=== PATIENT | female | born 2005 | race Caucasian/White ===

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

== ENCOUNTER → 2024-04-21 | Outpatient (CLI) | payer BC, SELFPAY ==
--- NOTE | 2024-04-21 10:21 | NM_ITS ---
CLINICAL: 18-year-old female with history of chronic nausea SEMI-SOLID PHASE 99m Tc SULFUR COLLOID GASTRIC EMPTYING STUDY COMPARISON: None available FINDINGS: The patient was administered 1.1 mCi of 99m Tc sulfur colloid mixed with oatmeal and consumed per os. Image acquisitions in the anterior-posterior projections were obtained for 60 minutes. There is prompt visualization of the stomach. There is no gastroesophageal reflux identified. The T ? raw data emptying was calculated to be 48.78 minutes, (Normal: 12-56 minutes). NM/Gastric Emptying Study IMPRESSION: 1. NORMAL 99m Tc sulfur colloid semi-solid phase (oatmeal) gastric emptying imaging examination. A. There is normal and preserved semi-solid phase gastric emptying compared to normal controls. (Lebron et al, J Nucl Med Tech 38: 186, 2010). Electronically Signed: Tarik Quiroz DO at 10:07 EDT ,
== END | disposition home or self-care (01) ==
LOC: NM 10:18
PROVIDERS: PCP Pediatrics; Referring Provider Student in an Organized Health Care Education/Training Program; Visit Provider Student in an Organized Health Care Education/Training Program
DX: R10.9 Unspecified abdominal pain (principal)
CPT/HCPCS: 78264; A9541

== ENCOUNTER 2024-10-18 11:40 | Emergency (ER) | payer BC, SELFPAY ==
[2024-10-18 11:41] VITALS: BP 135/83; PULSE 146; RESP 18; TEMP 36.8; O2SAT 100; BMI 27.3
[2024-10-18] MEDS: Ketorolac 15 MG/ML Vial IV (12:07)
[2024-10-18] MEDS: Ondansetron 4 MG/2 ML Vial IV (12:07)
[2024-10-18 12:08] LABS: Mucous, Urine 0 SEEN /hpf (<or=2+)
[2024-10-18 12:10] LABS: Color, Urine Yellow (Yellow); Glucose, Dipstick Normal (Normal); Ketone-Dipstick 5 mg/dl (Negative); Leukocyte Esterase-Dipstick 25 /ul (Negative); Nitrite-Dipstick Negative (Negative); Occult Blood-Urine 250 /ul (Negative); Protein-Dipstick 30 mg/dl (Negative); Urine Bilirubin Dipstick Negative (Negative); Urine Clarity Sl. Cloudy (Clear); Urine Urobilinogen Normal (Normal)
[2024-10-18 12:11] LABS: Absolute Lymphocyte Count 0.86 X10^3/uL (0.83-4.51); Absolute Neutrophil Count 5.5 X10^3/uL (2.0-7.7); Basophil# 0.01 X10^3/uL; Basophil% 0.1 % (0-1); Eosinophil# 0.03 X10^3/uL; Eosinophils% 0.4 % (0-5); Hematocrit 41.8 % (37-47); Hemoglobin 14.2 g/dL (12.0-15.0); Lymphocyte # 0.86 X10^3/ul (0.83-4.51); Lymphocyte % 11.9 % (19-41); Mean Corpuscular Hgb 30.6 pg (27.0-32.0); Mean Corpuscular Volume 90.1 fL (81-99); Mean Platelet Vol. 11.9 fl (6.2-12.0); NRBC Flagged by Analyzer 0 % (0-5); Neutrophil # 5.53 X10^3/uL (2.7-7.7); Neutrophil % 76.3 % (47-70); Platelet Count 206 K/mm3 (150-450); RBC Distribution Width CV 12.1 % (11.6-14.6); RBC Distribution Width SD 39.7 fl (35.1-43.9); Red Blood Count 4.64 M/mm3 (4.2-5.4); White Blood Count 7.3 K/mm3 (4.4-11.0)
[2024-10-18 12:15] LABS: Bacteria 2+ /hpf (None Seen); Squamous Epithelial Cells - UA 5-10 SEEN /hpf (5-10)
[2024-10-18 12:16] LABS: Red Blood Cells-Urine 0 SEEN /hpf (0-5); White Blood Cells 0-5 SEEN /hpf (0-5)
[2024-10-18 12:18] LABS: Internal QC Validated? YES +Cl - CLEAR BKGD; Pregnancy, Serum, hCG Quali. NEGATIVE Negative
--- NOTE | 2024-10-18 12:22 | EDS_ITS ---
HPI History of Present Illness Chief Complaint: Complaint Detail of Chief Complaint: Bilateral back pain with frequency Informant: patient Onset/Context/Timing Onset: Days (Detailed HPI narrative) Context: Onset with activity Timing: Intermittent and Waxes and wanes Quality: Pain Location: Right and left flank Current Severity: Moderate Maximum Severity: Severe Worsened by: Movement Relieved by: Nothing better if she remains still Associated Symptoms Associated Symptoms: Frequency Narrative Narrative: Patient complains of pain back and abdomen. States it feels like her kidney stone. She reports symptoms started a couple days ago. Pain resolved. Last night she had increased pain. She localizes the pain to the right left flank area. She just started her menses. She is on control. She is sexually active. She denies history of . She denies symptoms of . Patient denies fever, chills night sweats. Patient denies nausea, vomiting or diarrhea. Patient does report frequency. She denies dysuria. There is no history of trauma. Pain is worse with movement. She remains still the pain is less. She has not noted any lesions or rash. Review of prior records indicates patient had a small nonobstructing left ureteral stone June 2022. Patient had an ultrasound April 2023 which revealed no evidence of renal stones. Patient had a CT of the abdomen May 2023 which revealed no abnormality. Prior similar symptoms: Yes (When she had prior kidney stone) Recent Illness/Hospitalization: No PFSH PFS Medical History Easy bruising Renal stone Anxiety Low iron Back pain Migraine headache Non-smoker Depression Home Medications ?Medication ?Instructions ?Recorded ?Last Taken ?Type drospirenone 3 mg-ethinyl 1 tab PO DAILY 03/26/24 Unkn own History estradiol 0.02 mg tablet (SWATHI (28)) ciprofloxacin HCl 500 mg tablet 500 mg PO BID #14 TABL ETS 10/18/24 Unknown Rx Allergy/AdvReac Type Severity Reaction Status Date / Time cephalexin (From Keflex) Allergy Hives Verified 10/18/24 11:43 Penicillins Allergy Hives Verified 10/18/24 11:43 Family History Mother Asthma Anemia IBS (irritable bowel syndrome) Father Scheurmann's disease Degenerative disc disease Surgical History [place] teeth removed Social History Smoking Status: Never smoker alcohol intake: never substance use type: marijuana ROS ROS ED Constitutional Constitutional ED: Denies chills, fever(s), subjective or sweats Eyes Eyes: Denies blurry vision or change in vision ENT ENT ED: Denies ear pain, rhinorrhea or sore throat Cardiovascular Cardiovascular: Denies chest pain, palpitations or racing heartbeat Respiratory/Chest Respiratory/Chest: Denies cough, dyspnea or dyspnea on exertion Gastrointestinal Gastrointestinal: Reports abdominal pain; Denies constipation, diarrhea, melena, nausea or vomiting Genitourinary Genitourinary ED: Reports urinary frequency; Denies dysuria or hematuria Musculoskeletal Musculoskeletal: Reports back pain; Denies arthralgias or myalgias Integumentary Denies rash Hematologic/Lymphatic Hematologic/Lymphatic: Reports systems reviewed and no addt'l complaints, except as documented EXAM Physical Exam Const Vital Signs: 10/18/24 11:41 10/18/24 12:47 Temperature 98.2 F Temperature Source Oral Pulse Rate 146 H 89 Respiratory Rate 18 15 Blood Pressure 135/83 H 108/72 Blood Pressure Mean 100 84 Pulse Ox 100 99 Oxygen Delivery Method Room Air Room Air Vital signs remarkable for heart rate of 146. Positive well nourished and well developed General Appearance ED: well developed, NAD and pallor; Negative for cyanotic or diaphoretic HEENT Reports moist mucous membranes HEENT Narrative: Has atraumatic normocephalic. Ears normal. Nares patent. Posterior pharynx is normal. Eyes PERRL and EOMs intact bilaterally General Eye ED: Negative for pale conjunctiva Neck no lymphadenopathy, supple and no JVD Chest Wall inspection of chest normal and palpation of chest normal Resp normal respiratory effort and clear to auscultation bilaterally Cardio regular rate, regular rhythm, S1 normal heart sound, S2 normal heart sound and no murmurs GI normal to inspection, nondistended, normoactive bowel sounds, non-tender, non- distended and no masses; Negative for hepatosplenomegaly Inspection: Negative for abdominal distention Palpation: soft Back/Spine Negative for no CVA tenderness General Back: CVA tenderness bilateral (Pain is over the right kidney on the right pain is paralumbar region on the left) Extremity normal to inspection General Extremety ED: Negative for edema or tenderness General Extremity: Negative for edema Neuro oriented x3, CN's II-XII intact bilaterally and no sensory deficits noted Sensorium / Orientation: alert Motor Exam: strength 5/5 throughout Skin no rashes or lesions noted, no wounds and skin turgor normal General Skin Exam: elasticity normal and pallor; Negative for jaundice MDM MDM MDM Narrative Medical decision making narrative: Differential diagnosis would be muscular pain, pyelonephritis, obstructing ureteral stone with or without infection, history is not consistent with ap pendicitis. History is not consistent with ectopic or ovarian cyst. Will have vitals repeated since her heart rate was markedly elevated. CBC was obtained assess white count differential. Urine to assess for evidence of infection. Serum in the event that a CT is needed. BMP to assess electrolytes and glucose. Patient was medicated with IV Toradol. Nurse was asked at 1231 to repeat vital signs. History & Record Review Additional record(s) reviewed:: Prior ED visit (Documented HPI narrative.) and Prior labs Lab Data Attestation: I reviewed the patient's lab results. Lab results narrative: CBC is remarkable for slight elevation of neutrophils. Basic metabolic panel is unremarkable. Serum test is negative. Urine is suggestive with infection. Patient also has ketones. Labs: Laboratory Results - last 24 hr 10/18/24 10/18/24 11:59 12:00 WBC 7.3 RBC 4.64 Hgb 14.2 Hct 41.8 MCV 90.1 MCH 30.6 MCHC 34.0 RDW Std Deviation 39.7 RDW Coeff of Miguel 12.1 Plt Count 206 MPV 11.9 Immature Gran % (Auto) 0.300 Neut % (Auto) 76.3 H Lymph % (Auto) 11.9 L [place] % (Auto) 11.0 H Eos % (Auto) 0.4 Baso % (Auto) 0.1 Absolute Neuts (auto) 5.5 Absolute Lymphs (auto) 0.86 Nucleated RBC % 0 Sodium 138 Potassium 3.6 Chloride 108 H Carbon Dioxide 22.0 Anion Gap 8 BUN 7 Creatinine 0.63 Estim Creat Clear Calc 143.97 Est GFR (MDRD) Af Amer 154 Est GFR (MDRD) Non-Af 128 BUN/Creatinine Ratio 11.1 Glucose 101 Calcium 8.5 Serum , Qual NEGATIVE Urine Color Yellow Urine Clarity Sl. Cloudy Urine pH 6.0 Ur Specific [place] 1.010 Urine Protein 30 H Urine Glucose (UA) Normal Urine Ketones 5 H Urine Occult Blood 250 H Urine Nitrite Negative Urine Bilirubin Negative Urine Urobilinogen Normal Ur Leukocyte Esterase 25 H Urine RBC 0 SEEN Urine WBC 0-5 SEEN Ur Squamous Epith Cells 5-10 SEEN Urine Bacteria 2+ Urine Mucus 0 SEEN Treatment and Re-Evaluation :: Patient was informed of results and recent imaging was not obtained. She understands. Will discharge to home with prescription for ciprofloxacin. Discharge Plan Triage Chief Complaint: Complaint ED Provider: Juan Wolfe Dx/Rx/DC Orders Clinical Impression: Pyelonephritis of right kidney, Sinus tachycardia, Ketosis Instructions: ED Pyelonephritis, Female (Adult) Prescriptions: New ciprofloxacin HCl 500 mg tablet 500 mg PO BID Qty: 14 0RF No Action drospirenone-ethinyl estradiol [SWATHI (28)] 3-0.02 mg tablet 1 tab PO DAILY Primary Care Provider: Kirsten Mancera Referrals: NOT,DEFINED [Non-Staff] - Kirsten Mancera, [employer] [Primary Care Provider] - 3-5 Days if not improving Print Language: Polish Disposition Disposition: Home, Self Care
[2024-10-18] MEDS: Ciprofloxacin 500 MG Tablet PO (12:31)
[2024-10-18 12:40] LABS: Anion Gap 8 (5-15); BUN 7 mg/dL (7-18); BUN/Creat Ratio 11.1 RATIO (10-20); Calcium,Total 8.5 mg/dL (8.5-10.1); Chloride 108 mmol/L (98-107); Creatinine, Serum 0.63 mg/dL (0.55-1.02); EST Glomerular Filtration Rate 128 mL/min (>60); Est Glom Filt Rate - Afr Amer 154 mL/min (>60); Estimated Creatinine Clearance 143.97 ml/min; Glucose 101 mg/dL (74-106); Potassium 3.6 mmol/L (3.5-5.1); Sodium Level 138 mmol/L (136-145)
[2024-10-18 12:47] VITALS: BP 108/72; PULSE 89; RESP 15; O2SAT 99
[2024-10-18 13:11] VITALS: BP 123/74; PULSE 78; RESP 18; TEMP 36.4; O2SAT 98
== END 2024-10-18 13:13 | disposition home or self-care (01) ==
PROVIDERS: Emergency Provider Emergency Medicine; PCP Nurse Practitioner Women's Health; Visit Provider Emergency Medicine
DX: N12 Tubulo-interstitial nephritis, not specified as acute or chronic (principal); E88.89 Other specified metabolic disorders; R00.0 Tachycardia, unspecified
CPT/HCPCS: 80048; 81001; 84703; 85025; 87086; 87088; 96374; 96375; 96376; 99283; A4216; J2405

== ENCOUNTER → 2025-01-29 | Outpatient (CLI) | payer BC, SELFPAY ==
[2025-02-03 08:08] LABS: Calprotectin, Stool 17 ug/g (0-120)
== END | disposition home or self-care (01) ==
PROVIDERS: PCP Nurse Practitioner Women's Health; Referring Provider Student in an Organized Health Care Education/Training Program; Visit Provider Student in an Organized Health Care Education/Training Program
DX: K58.9 Irritable bowel syndrome, unspecified (principal); R19.7 Diarrhea, unspecified
CPT/HCPCS: 82653; 83630; 83993; 87177; 87209; 87493

== ENCOUNTER → 2025-02-19 | Outpatient (CLI) | payer BC, SELFPAY ==
[2025-02-24 09:09] LABS: Beef <0.10 kU/L (Class 0); Chocolate <0.10 kU/L (Class 0); Codfish <0.10 kU/L (Class 0); Corn <0.10 kU/L (Class 0); Egg, Whole <0.10 kU/L (Class 0); Milk (Cow) <0.10 kU/L (Class 0); Mussels <0.10 kU/L (Class 0); Peanut <0.10 kU/L (Class 0); Pork <0.10 kU/L (Class 0); Salmon <0.10 kU/L (Class 0); Shrimp <0.10 kU/L (Class 0); Soybean <0.10 kU/L (Class 0); Tuna <0.10 kU/L (Class 0); Wheat <0.10 kU/L (Class 0)
== END | disposition home or self-care (01) ==
LOC: LAB 13:09
PROVIDERS: PCP Nurse Practitioner Women's Health; Referring Provider Student in an Organized Health Care Education/Training Program; Visit Provider Student in an Organized Health Care Education/Training Program
DX: R19.7 Diarrhea, unspecified (principal)
CPT/HCPCS: 36415; 86003; 86005